=== PATIENT | female | born 1990 | race African-American/Black ===

== ENCOUNTER 2018-01-08 00:26 | Emergency (ER) | payer MEDICAID ==
[~2018-01-08] VITALS: Ht 170.2 cm; Wt 73.0 kg
[2018-01-08 01:39] LABS: CLARITY URINE CLOUDY (CLEAR); COLOR URINE YELLOW (YELLOW); KETONES URINE TRACE (NEGATIVE); LEUKOCYTE ESTERASE URINE 2+ (NEGATIVE); NITRITE URINE NEGATIVE (NEGATIVE); OCCULT BLOOD URINE NEGATIVE (NEGATIVE); PH URINE 5.5 (4.5-8.0); PROTEIN URINE NEGATIVE (NEGATIVE); SPECIFIC GRAVITY URINE 1.027 (1.005-1.030)
[2018-01-08 03:56] VITALS: BP 130/83
== END 2018-01-08 02:30 | disposition home or self-care (01) ==
LOC: ER 00:43
DX: K59.00 Constipation, unspecified (principal); N39.0 Urinary tract infection, site not specified
CPT/HCPCS: 81001; 81025; 87086; 99284

== ENCOUNTER 2024-07-18 16:57 | Emergency (ER) | payer MEDICAID ==
[~2024-07-18] VITALS: Ht 165.1 cm; Wt 90.0 kg
[2024-07-18 16:59] VITALS: O2SAT 98
[2024-07-18] MEDS: ACETAMINOPHEN 325MG TABLET PO ONE (17:48)
[2024-07-18] MEDS: CEFTRIAXONE 1GM/50ML 50 ML IV ONE (17:48)
[2024-07-18] MEDS: ONDANSETRON HCL 4MG/2ML INJ IV ONE (17:48)
[2024-07-18] MEDS: SODIUM CHLORIDE 0.9% 1000ML BAG (SEPSIS BOLUS) IV ONE (17:48)
[2024-07-18 17:59] LABS: CLARITY URINE CLEAR (CLEAR); COLOR URINE YELLOW (YELLOW); GLUCOSE URINE NEGATIVE (NEGATIVE); KETONES URINE TRACE (NEGATIVE); LEUKOCYTE ESTERASE URINE TRACE (NEGATIVE); NITRITE URINE NEGATIVE (NEGATIVE); OCCULT BLOOD URINE 1+ (NEGATIVE); PH URINE 7.5 (4.5-8.0); PROTEIN URINE TRACE (NEGATIVE); SPECIFIC GRAVITY URINE 1.024 (1.005-1.030)
[2024-07-18 18:18] LABS: BACTERIA URINE 1+
[2024-07-18 18:19] LABS: SQUAMOUS EPITHELIAL CELL URINE 1+ /lpf (RARE/1+); WBC URINE 0-2 /hpf (0-2)
[2024-07-18 19:50] VITALS: TEMP 37.55856
[2024-07-18 20:00] LABS: HEMATOCRIT. 40.5 % (36.0-48.0); HEMOGLOBIN. 13.2 g/dL (12.0-16.0); MEAN CORPUSCULAR HEMOGLOBIN 29.1 pg (28.0-32.0); MEAN CORPUSCULAR HGB CONC 32.6 g/dL (31.0-37.0); MEAN CORPUSCULAR VOLUME 89.4 fL (81.0-99.0); MEAN PLATELET VOLUME 7.8 fl (7.4-10.4); PLATELET 286 x1000/uL (130-400); RED BLOOD CELL COUNT 4.53 mill/uL (4.2-5.4); WHITE BLOOD COUNT 11.8 x1000/uL (4.5-11.0)
[2024-07-18 20:01] LABS: DIFFERENTIAL COMMENT 1
[2024-07-18 20:04] LABS: CHLORIDE 104 mEq/L (98-107); POTASSIUM 3.5 mEq/L (3.5-5.1); SODIUM 136 mEq/L (136-145)
[2024-07-18 20:05] LABS: CARBON DIOXIDE 25 mEq/L (21-32)
[2024-07-18 20:08] LABS: INR 1.1; PROTHROMBIN TIME 11.9 sec (9.6-11.0)
[2024-07-18 20:10] LABS: CREATININE 0.8 mg/dL (0.6-1.0); GLUCOSE 131 mg/dL (70-105)
[2024-07-18 20:12] LABS: ALANINE AMINOTRANSFERASE 9 IU/L (10-49); ASPARTATE AMINOTRANSFERASE 15 IU/L (<34)
[2024-07-18 20:13] LABS: BILIRUBIN TOTAL 0.3 mg/dL (0.1-1.0); PROTEIN TOTAL 6.9 g/dL (6.0-8.3)
[2024-07-18 20:18] LABS: HCG SCREEN NEGATIVE
[2024-07-18 20:21] LABS: TROPONIN I HIGH SENSITIVITY < 4 ng/L (3.0-34); UREA NITROGEN BLOOD < 5 mg/dL (9-23)
[2024-07-18 20:29] LABS: PLATELET ESTIMATE NORMAL
[2024-07-18] MEDS ORDERED: NITR-87 MT (20:51)
[2024-07-18] MEDS ORDERED: IBUP-2028 MT (20:51)
[2024-07-18] MEDS ORDERED: NIRM1TAB8 PO (20:54)
[2024-07-18 21:37] VITALS: BP 121/64; PULSE 96; RESP 16; O2SAT 99
== END 2024-07-18 21:43 | disposition home or self-care (01) ==
LOC: ER 16:57
DX: R11.2 Nausea with vomiting, unspecified (principal); R50.9 Fever, unspecified; R09.81 Nasal congestion; U07.1 COVID-19; N39.0 Urinary tract infection, site not specified
CPT/HCPCS: 80053; 81003; 81025; 84703; 83605; 85025; 85610; 87040; 87086; 84484; 36415; 84145; 71045; 93005; 96365; 96375; 99285; 87426; J0696; J2405; J7030; Z7610 ×4